=== PATIENT | male | born 1960 | race Caucasian/White ===

== ENCOUNTER → 2020-04-13 | Outpatient (CLI) | payer BC ==
--- NOTE | 2020-04-13 18:02 | RAD ---
EXAM DESCRIPTION: Pelvis CLINICAL HISTORY: PAIN IN LEFT HIP COMPARISON: None. TECHNIQUE: AP pelvis FINDINGS: Pedicle screws are observed throughout the lower lumbar spine. Acetabular osteophyte formation is observed in the left hip. No evidence for fracture is seen. The pelvis is intact. Minimal right-sided acetabular osteophyte formation is also observed. The sacroiliac joints are intact. Phlebolith are observed in the pelvis. IMPRESSION: Mild degenerative changes are observed slightly more pronounced on the left. Electronically signed by: Brennon Esposito MD 04/13/2020 6:01 PM CDT
--- NOTE | 2020-04-13 18:03 | RAD ---
EXAM DESCRIPTION: Knee,Left Complete CLINICAL HISTORY: PAIN IN LEFT KNEE COMPARISON: None. TECHNIQUE: 4 views left FINDINGS: Mild loss of medial joint space is observed. Some anterior enthesophyte formation is observed on the patella. A small joint effusion is seen. No fracture is detected. IMPRESSION: Degenerative changes are observed in the knee most pronounced in the patellofemoral joint and medial joint compartment. Electronically signed by: Brennon Esposito MD 04/13/2020 6:02 PM CDT
== END ==
LOC: RAD 15:08
PROVIDERS: ATTEND Orthopaedic Surgery
DX: M16.12 Unilateral primary osteoarthritis, left hip (principal); M17.12 Unilateral primary osteoarthritis, left knee

== ENCOUNTER → 2021-01-04 | Outpatient (CLI) | payer BC ==
--- NOTE | 2021-01-04 13:06 | RAD ---
EXAM DESCRIPTION: Pelvis CLINICAL HISTORY: 60 years Male, PAIN IN LEFT HIP COMPARISON: None. FINDINGS: Single view of the pelvis demonstrates the bony pelvis intact. Pedicle screws from L4 through the sacrum bilaterally with likely a lucent vertical rods noted in place. Mild hip degenerative arthropathy slightly worse on the left noted. No fracture or dislocation or soft tissue mass evident. IMPRESSION: Negative pelvis one view. Electronically signed by: Keith Louis MD 01/04/2021 1:04 PM [employer]
--- NOTE | 2021-01-04 13:07 | RAD ---
EXAM DESCRIPTION: Hip,Left 2 Views CLINICAL HISTORY: PAIN IN LEFT HIP COMPARISON: None Available. TECHNIQUE: AP/frog leg lateral FINDINGS: Two views left hip demonstrate modest hypertrophic change at the lateral acetabular rim with preserved joint space. The femoral head is smooth and round without focal defects. No destructive process fracture or dislocation seen. IMPRESSION: Bony hypertrophic changes at the acetabular rim superiorly wrapping slightly posteriorly. No fracture or dislocation seen. Electronically signed by: Keith Louis MD 01/04/2021 1:06 PM [facility]
== END ==
LOC: RAD 10:28
PROVIDERS: ATTEND Orthopaedic Surgery
DX: M89.38 Hypertrophy of bone, other site (principal); M25.552 Pain in left hip